=== PATIENT | female | born 1980 | race Caucasian/White ===

== ENCOUNTER 2017-10-07 22:29 | Emergency (ER) | payer SELFPAY ==
[~2017-10-07] VITALS: Ht 160 cm; Wt 60.1 kg
[2017-10-07 23:16] VITALS: Ht 160 cm; Wt 60.1 kg
== END 2017-10-08 03:14 | disposition left against medical advice (07) ==
LOC: FTE 22:29
DX: Z53.21 Procedure and treatment not carried out due to patient leaving prior to being seen by health care provider (principal)